=== PATIENT | male | born 1995 | race Asian ===

== ENCOUNTER 2016-07-22 22:18 | Inpatient (IN) | payer OTHER ==
[~2016-07-22] VITALS: Ht 170.2 cm; Wt 62.0 kg
[2016-07-22] MEDS ORDERED: ONDANSETRON 4 MG INJ IV STA (22:55)
[2016-07-22] MEDS ORDERED: morphine 4 MG/ML VIAL IV STA (22:55)
[2016-07-22] MEDS ORDERED: SOD CHLORIDE 0.9% 1,000 ML IV STA (22:55)
--- NOTE | 2016-07-22 23:23 | ERD ---
ER Documentation Chief Complaint Date/Time DATE: 07/22/16 TIME: 23:21 Chief Complaint RIGHT QUADRANT ABD PAIN STARTED AROUND 3 PM TODAY WITH N/V HPI 21-year-old male presents here in emergency department for complaints of right lower quadrant abdominal pain started at 3 PM today with nausea and vomiting, also started to have fever today. Patient describes the pain as sharp pain, 9/ 10 scale, accompanied with vomiting. Patient does not have any blood in the vomit. Patient does not live blurriness or black stool. Patient does not have any diarrhea or constipation. Patient does not have any flank pain. Patient does not have hematuria or dysuria. ROS All systems reviewed and are negative except as per history of present illness. Medications Home Meds Reported Medications [none] Unknown Strength No Conflict Check 07/22/16 Allergies Allergies: Coded Allergies: No Known Allergy (Unverified , 07/22/16) PMhx/Soc Medical and Surgical Hx: pt denies Medical Hx, pt denies Surgical Hx FmHx Family History: No coronary disease, No diabetes, No other Physical Exam Vitals Vital Signs Date Time Temp Pulse Resp B/P Pulse Ox O2 Delivery O2 Flow Rate FiO2 07/22/16 22:20 99.4 98 20 135/80 96 Physical Exam GENERAL: The patient is well developed and appropriate for usual state of health, in no apparent distress. CHEST: Clear to auscultation bilaterally. There are no rales, wheezes or rhonchi. HEART: Regular rate and rhythm. No murmurs, clicks, rubs or gallops. No S3 or S4. ABDOMEN: Soft, tenderness in the right lower quadrant noted.. Good bowel sounds. No rebound or guarding. No gross peritonitis. No gross organomegaly or masses. No Sy sign BACK: No midline or flank tenderness. EXTREMITIES: Equal pulses bilaterally. There is no peripheral clubbing, cyanosis or edema. No focal swelling or erythema. Full range of motion. Grossly neurovascularly intact. NEURO: Alert and oriented. Cranial nerves 2-12 intact. Motor strength in all 4 extremities with 5/5 strength. Sensation grossly intact. Normal speech and gait. SKIN: There is no apparent rash or petechia. The skin is warm and dry. HEMATOLOGIC AND LYMPHATIC: There is no evidence of excessive bruising or lymphedema. No gross cervical, axillary, or inguinal lymphadenopathy. Results 24 hrs Laboratory Tests Test 07/22/16 23:35 Urine Color LT. YELLOW Urine Clarity CLEAR Urine pH 6.0 Urine Specific [place] 1.025 Urine Ketones NEGATIVE Urine Nitrite NEGATIVE Urine Bilirubin NEGATIVE Urine Urobilinogen 0.2 E.U./dL Urine Leukocyte Esterase 1+ Urine Microscopic RBC 0-2/HPF Urine Microscopic WBC 10-25/HPF Urine Squamous Epithelial Cells RARE Urine Bacteria RARE Urine Hemoglobin TRACE Urine Glucose NEGATIVE% Urine Total Protein NEGATIVE Current Medications Medications (Trade) Dose Ordered Sig/Leonard Route PRN Reason Start Time Stop Time Status Last Admin Dose Admin Sodium Chloride (NS) 1,000 ml @ 1,000 mls/hr Q1H STAT IV 07/22/16 22:55 07/22/16 23:54 DC 07/23/16 00:18 Morphine Sulfate (morphine) 4 mg ONCE STAT IV 07/22/16 22:55 07/22/16 22:56 DC 07/23/16 00:18 Ondansetron HCl (Zofran Inj) 4 mg ONCE STAT IV 07/22/16 22:55 07/22/16 22:56 DC 07/23/16 00:18 Patient was given medication for pain here in emergency department, after treatment, patient verbalized feeling much better. Patient's pain is improved.Patient was given Zofran here in the emergency department. After treatment, patient was able to tolerate po fluids here in the emergency department without any vomiting. There is no signs and symptoms of dehydration. Normal saline IV bolus was given here in emergency department for rehydration, patient tolerated IV fluids. PROCEDURE: CT ABDOMEN/PELVIS WITHOUT CONTRAST CLINICAL INDICATION: 21-year-old male with right lower quadrant pain. TECHNIQUE: The study was performed utilizing a GE Zumobipegdgt VCT 64-slice CT scanner. Direct axial sections were obtained through the abdomen and pelvis without the use of intravenous contrast material. Sagittal and coronal reformations were obtained. One or more of the following dose reduction techniques were utilized: automated exposure control, adjustment of the mA and/ or kV according to patient's size or use of iterative reconstruction technique. The images were reviewed on a PACS workstation. CTD/vol = 6.9 mGy; Total Exam DLP = 361.0 mGy-cm. COMPARISON: None. FINDINGS: The lung bases are unremarkable. There is no evidence for significant pleural effusion. The liver has a normal size and contour without focal areas of abnormal density. No intrahepatic nor extrahepatic biliary ductal dilatation is seen. The gallbladder demonstrates no wall thickening nor pericholecystic fluid. No biliary stones are evident. The pancreas is without areas of abnormal attenuation. The spleen is identified and has a normal size without abnormal density. The adrenal glands are unremarkable. The kidneys are without abnormal density. No hydroureteronephrosis nor nephroureterolithiasis is evident. The urinary bladder contains urine. There is no evidence for bowel obstruction. The appendix is diffusely thickened measuring up to 12 mm with mild surrounding inflammatory changes consistent with acute appendicitis. Shotty mesenteric lymph nodes are present. There is no significant pelvic free fluid. The prostate is not enlarged. The aortoiliac vessels are without aneurysmal dilatation. The osseous structures are intact. IMPRESSION: 1. Diffusely thickened edematous appendix measuring up to 12 mm with mild surrounding inflammatory changes most consistent with acute appendicitis. 2. Shotty mesenteric lymph nodes. CRITICAL RESULTS: A call report was made to [facility] ER Letitia Haskins on July 22, 2016 11:59 p.m.. .Delmar Duran MD, MD Date Time Electronically viewed and signed by .Delmar Duran MD, MD on 07/23/2016 00:03 .M/ CC: LETITIA HASKINS NP Procedures/MDM Medical Decision Making: Patient is acute appendicitis, I discussed this case with Dr. Byers, will see patient in the morning, to start patient on Unasyn 3 gm IV [id number]. Patient will be admitted. Departure Diagnosis: Primary Impression: Appendicitis Appendicitis type: acute appendicitis Acute appendicitis type: unspecified acute appendicitis type Qualified Code: K35.80 - Acute appendicitis, unspecified acute appendicitis type Condition: Fair LETITIA HASKINS NP July 22, 2016 23:23
[2016-07-22 23:50] LABS: ADD UMIC YES; URINE BILIRUBIN (Dip) NEGATIVE (NEGATIVE); URINE BLOOD (Dip) TRACE (NEGATIVE); URINE COLOR LT. YELLOW (YELLOW); URINE GLUCOSE (Dip) NEGATIVE (NEGATIVE); URINE KETONES (Dip) NEGATIVE (NEGATIVE); URINE LEUKOCYTE ESTERASE (Dip) 1+ (NEGATIVE); URINE NITRITE (Dip) NEGATIVE (NEGATIVE); URINE TOTAL PROTEIN (Dip) NEGATIVE (NEGATIVE); URINE UROBILINOGEN (Dip) 0.2 E.U./dL (0.1-1.0)
[2016-07-23] VITALS (14 sets, daily range): BP systolic 96–122; BP diastolic 56–73; PULSE 60–84; RESP 14–23; Ht 170.2 cm; Wt 62.0 kg
--- NOTE | 2016-07-23 00:03 | RADRPT ---
PROCEDURE: CT ABDOMEN/PELVIS WITHOUT CONTRAST CLINICAL INDICATION: 21-year-old male with right lower quadrant pain. TECHNIQUE: The study was performed utilizing a GE Kwanj[employer] VCT 64-slice CT scanner. Direct axia l sections were obtained through the abdomen and pelvis without the use of intravenous contrast mate rial. Sagittal and coronal reformations were obtained. One or more of the following dose reduction t echniques were utilized: automated exposure control, adjustment of the mA and/or kV according to pat ient's size or use of iterative reconstruction technique. The images were reviewed on a PACS workst atRepunch. CTD/vol = 6.9 mGy; Total Exam DLP = 361.0 mGy-cm. COMPARISON: None. FINDINGS: The lung bases are unremarkable. There is no evidence for significant pleural effusion. The liver has a normal size and contour without focal areas of abnormal density. No intrahepatic nor extrahepa tic biliary ductal dilatation is seen. The gallbladder demonstrates no wall thickening nor perichole cystic fluid. No biliary stones are evident. The pancreas is without areas of abnormal attenuation. The spleen is identified and has a normal size without abnormal density. The adrenal glands are unr emarkable. The kidneys are without abnormal density. No hydroureteronephrosis nor nephroureterolithi asis is evident. The urinary bladder contains urine. There is no evidence for bowel obstruction. The appendix is diffusely thickened measuring up to 12 mm with mild surrounding inflammatory changes co nsistent with acute appendicitis. Shotty mesenteric lymph nodes are present. There is no significa nt pelvic free fluid. The prostate is not enlarged. The aortoiliac vessels are without aneurysmal dilatation. The osseous structures are intact. IMPRESSION: 1. Diffusely thickened edematous appendix measuring up to 12 mm with mild surrounding inflammatory changes most consistent with acute appendicitis. 2. Shotty mesenteric lymph nodes. CRITICAL RESULTS: A call report was made to [facility] ER Letitia Stevensonaaron on July 22, 2016 11:59 p.m.. .Delmar Duran MD, Date Time Electronically viewed and signed by .Delmar Duran MD, MD on 07/23/2016 00:03 .M/
[2016-07-23 00:14] LABS: URINE RBCS 0-2 /HPF (0)
[2016-07-23 00:16] LABS: BACTERIA,URINE RARE; SQUAMOUS EPITHELIAL CELL,UR RARE
[2016-07-23 00:18] LABS: ADD SCAN DIFF NO
[2016-07-23 00:21] LABS: BASOPHIL # 0.1 10^3/ul (0.0-0.1); BASOPHILS % 0.4 % (0.0-2.0); EOSINOPHILS % 0.2 % (0.0-7.0); HEMOGLOBIN 15.9 g/dl (14.0-18.0); LYMPHOCYTES # 1.3 10^3/ul (0.8-2.9); LYMPHOCYTES % 8.8 % (15.0-51.0); MEAN CORPUSCULAR HEMOGLOBIN 29.2 pg (29.0-33.0); MEAN CORPUSCULAR HGB CONC 33.8 g/dl (32.0-37.0); MEAN CORPUSCULAR VOLUME 86.2 fl (82.0-101.0); MONOCYTE # 0.5 10^3/ul (0.3-0.9); MONOCYTES % 3.6 % (0.0-11.0); NEUTROPHIL # 12.4 10^3/ul (1.6-7.5); NEUTROPHILS % 86.7 % (39.0-77.0); PLATELET COUNT 293 10^3/UL (140-415); RED BLOOD COUNT 5.45 10^6/ul (4.70-6.10); RED CELL DISTRIBUTION WIDTH 12.6 % (11.5-14.5); WHITE BLOOD COUNT 14.3 10^3/ul (4.8-10.8)
[2016-07-23] MEDS ORDERED: AMPICILLIN/SULB 3 GM/NS (PMX) 100 ML IVPB ONE (00:30)
[2016-07-23 00:41] LABS: ALBUMIN 4.9 g/dl (3.3-4.9); ALBUMIN/GLOBULIN RATIO 1.22; CALCIUM 9.7 mg/dl (8.4-10.2); CREATININE 0.91 mg/dl (0.61-1.24); POTASSIUM 3.9 mmol/L (3.5-5.1); TOTAL PROTEIN 8.9 g/dl (6.1-8.1)
[2016-07-23] MEDS ORDERED: morphine 4 MG/ML VIAL IV PRN (03:00)
[2016-07-23] MEDS ORDERED: ONDANSETRON 4 MG INJ IV PRN ×2 (04:30→17:30)
[2016-07-23 05:06] LABS: ADD SCAN DIFF NO
[2016-07-23 05:16] LABS: BASOPHILS % 0.3 % (0.0-2.0); EOSINOPHILS # 0.1 10^3/ul (0.0-0.5); EOSINOPHILS % 1.2 % (0.0-7.0); HEMATOCRIT 42.3 % (42.0-52.0); LYMPHOCYTES # 1.6 10^3/ul (0.8-2.9); LYMPHOCYTES % 14.8 % (15.0-51.0); MEAN CORPUSCULAR HEMOGLOBIN 28.9 pg (29.0-33.0); MEAN CORPUSCULAR HGB CONC 33.1 g/dl (32.0-37.0); MEAN CORPUSCULAR VOLUME 87.4 fl (82.0-101.0); MEAN PLATELET VOLUME 9.1 fl (7.4-10.4); MONOCYTE # 0.7 10^3/ul (0.3-0.9); MONOCYTES % 6.2 % (0.0-11.0); NEUTROPHIL # 8.3 10^3/ul (1.6-7.5); NEUTROPHILS % 77.1 % (39.0-77.0); PLATELET COUNT 274 10^3/UL (140-415); RED BLOOD COUNT 4.84 10^6/ul (4.70-6.10); RED CELL DISTRIBUTION WIDTH 12.6 % (11.5-14.5); WHITE BLOOD COUNT 10.7 10^3/ul (4.8-10.8)
[2016-07-23 05:46] LABS: CALCIUM 8.5 mg/dl (8.4-10.2); CREATININE 0.8 mg/dl (0.61-1.24); MAGNESIUM 1.8 mg/dl (1.7-2.5); PHOSPHORUS 3.7 mg/dl (2.5-4.9); POTASSIUM 3.7 mmol/L (3.5-5.1)
[2016-07-23] MEDS: AMPICILLIN/SULB 3 GM/NS (PMX) 100 ML IVPB SCH ×4 (05:57→23:22)
[2016-07-23] MEDS: DEXTROSE 5%-0.45% NACL 1,000 ML IV SCH ×3 (05:57→23:22)
--- NOTE | 2016-07-23 09:15 | CONS ---
Date/Time of Note Date/Time of Note DATE: 07/23/16 TIME: 09:12 Assessment/Plan Assessment/Plan Chief Complaint/Hosp Course 21-year-old male with acute appendicitis. This has been confirmed via CT scan. * Continue nothing by mouth * Broad-spectrum intravenous antibiotics * IV fluid hydration * Pain control Definitive treatment will consist of laparoscopic appendectomy; possible open. This has been explained to the patient along with all risks and benefits of the procedure. [She] fully understands and is agreeable to the treatment plan as outlined. Informed consent will be obtained and the patient will be scheduled for laparoscopic appendectomy; possible open Problems: Consultation Date/Type/Reason Admit Date/Time July 23, 2016 at 02:41 Date of Consultation: July 23, 2016 Type of Consultation: GENERAL SURGERY Reason for Consultation Acute appendicitis Hx of Present Illness Patient is an otherwise healthy 21-year-old male who presented to the emergency room complaining of abdominal pain. Pain began yesterday at approximately 3 PM. It is located in the right lower quadrant. It has been associated with multiple episodes of nausea/vomiting. He denies any diarrhea/constipation or fever/chills. He denies any similar episodes of pain in the past. On arrival to the emergency room the patient had a CT scan of the abdomen and pelvis which showed findings consistent with acute appendicitis. He is currently laying comfortably in bed, but does complain of right lower quadrant abdominal pain. A 14 point review of systems was conducted and was negative except for that which is mentioned in HPI Past Medical History Medical History: no pertinent history Past Surgical History Past Surgical Hx: no surgical history Family History Significant Family History: no pertinent family hx Social History Smoking Status: Never smoker Exam/Review of Systems Vital Signs Vitals Vital Signs Date Time Temp Pulse Resp B/P Pulse Ox O2 Delivery O2 Flow Rate FiO2 07/23/16 07:58 98.0 64 19 96/56 98 Intake and Output 07/22/16 07/22/16 07/23/16 15:00 23:00 07:00 Output Total 200 ml Balance -200 ml Exam GENERAL: Awake, alert, oriented x 3. No acute distress. SKIN: No jaundice. HEENT: PERRLA, EOMI, No Scleral Icterus NECK: Supple without JVD CARDIOVASCULAR: S1S2, regular rate and rhythm. No murmurs appreciated. RESPIRATORY: Clear to auscultation bilaterally. ABDOMEN: Soft, bowel sounds present, nondistended, there is right lower quadrant tenderness to palpation with localized rebound and guarding. There is a positive Rovsing sign. EXTREMITIES: Free range of motion x 4. No cyanosis, edema, or clubbing. NEUROLOGIC: Cranial nerves II-XII are intact. Sensation is intact grossly. Results Result Diagram: 07/23/16 0443 07/23/16 0443 Results 24 hrs Laboratory Tests Test 07/22/16 23:35 07/23/16 04:43 Urine Color LT. YELLOW Urine Clarity CLEAR Urine pH 6.0 Urine Specific [place] 1.025 Urine Ketones NEGATIVE Urine Nitrite NEGATIVE Urine Bilirubin NEGATIVE Urine Urobilinogen 0.2 E.U./dL Urine Leukocyte Esterase 1+ H Urine Microscopic RBC 0-2 Urine Microscopic WBC 10-25 Urine Squamous Epithelial Cells RARE Urine Bacteria RARE Urine Hemoglobin TRACE Urine Glucose NEGATIVE Urine Total Protein NEGATIVE White Blood Count 10.7 # Red Blood Count 4.84 Hemoglobin 14.0 Hematocrit 42.3 Mean Corpuscular Volume 87.4 Mean Corpuscular Hemoglobin 28.9 L Mean Corpuscular Hemoglobin Concent 33.1 Red Cell Distribution Width 12.6 Platelet Count 274 Mean Platelet Volume 9.1 Neutrophils % 77.1 H Lymphocytes % 14.8 L Monocytes % 6.2 Eosinophils % 1.2 Basophils % 0.3 Nucleated Red Blood Cells % 0.0 Neutrophils # 8.3 H Lymphocytes # 1.6 Monocytes # 0.7 Eosinophils # 0.1 Basophils # 0.0 Nucleated Red Blood Cells # 0.0 Sodium Level 139 Potassium Level 3.7 Chloride Level 105 Carbon Dioxide Level 29 Anion Gap 9 # Blood Urea Nitrogen 19 Creatinine 0.80 Glucose Level 100 Calcium Level 8.5 Phosphorus Level 3.7 Magnesium Level 1.8 Medications Medications Current Medications Ampicillin Sodium/ Sulbactam Sodium (Unasyn 3gm/NS (Pmx)) 100 ml @ 100 mls/hr Q6 IVPB Last administered on 07/23/16 05:57; Admin Dose 100 MLS/HR; Start 02/27 at 06:00 Morphine Sulfate 4 mg 4 mg Q4H PRN IV PAIN; Start 07/23/16 at 03:00 Dextrose/Sodium Chloride (D5-1/2ns) 1,000 ml @ 100 mls/hr Q10H IV Last administered on 5/12/17at 05:57; Admin Dose 100 MLS/HR; Start 07/23/16 at 04:30 Ondansetron HCl (Zofran Inj) 4 mg Q4H PRN IV NAUSEA; Start 07/23/16 at 04:30 Procedures Procedures PROCEDURE: CT ABDOMEN/PELVIS WITHOUT CONTRAST CLINICAL INDICATION: 21-year-old male with right lower quadrant pain. TECHNIQUE: The study was performed utilizing a GE App[employer] square nv VCT 64-slice CT scanner. Direct axial sections were obtained through the abdomen and pelvis without the use of intravenous contrast material. Sagittal and coronal reformations were obtained. One or more of the following dose reduction techniques were utilized: automated exposure control, adjustment of the mA and/ or kV according to patient's size or use of iterative reconstruction technique. The images were reviewed on a PACS workstation. CTD/vol = 6.9 mGy; Total Exam DLP = 361.0 mGy-cm. COMPARISON: None. FINDINGS: The lung bases are unremarkable. There is no evidence for significant pleural effusion. The liver has a normal size and contour without focal areas of abnormal density. No intrahepatic nor extrahepatic biliary ductal dilatation is seen. The gallbladder demonstrates no wall thickening nor pericholecystic fluid. No biliary stones are evident. The pancreas is without areas of abnormal attenuation. The spleen is identified and has a normal size without abnormal density. The adrenal glands are unremarkable. The kidneys are without abnormal density. No hydroureteronephrosis nor nephroureterolithiasis is evident. The urinary bladder contains urine. There is no evidence for bowel obstruction. The appendix is diffusely thickened measuring up to 12 mm with mild surrounding inflammatory changes consistent with acute appendicitis. Shotty mesenteric lymph nodes are present. There is no significant pelvic free fluid. The prostate is not enlarged. The aortoiliac vessels are without aneurysmal dilatation. The osseous structures are intact. IMPRESSION: 1. Diffusely thickened edematous appendix measuring up to 12 mm with mild surrounding inflammatory changes most consistent with acute appendicitis. 2. Shotty mesenteric lymph nodes. CRITICAL RESULTS: A call report was made to [facility] DONIS Langley on July 22, 2016 11:59 p.m.. .Delmar Duran MD, MD Date Time Electronically viewed and signed by .Delmar Duran MD, on 07/23/2016 00:03 .M/ CC: DAWIT LANGLEY NP, MICHAEL A. MD July 23, 2016 09:15
--- NOTE | 2016-07-23 12:04 | HP ---
Date/Time of Note Date/Time of Note DATE: 07/23/16 TIME: 12:01 Assessment/Plan Lines/Catheters IV Catheter Type (from Nrsg): Peripheral IV Assessment/Plan Assessment/Plan IMPRESSION 1. Acute Appendicitis 2. Abd pain 2/2 above PLAN NPO with IVF Pain mgmt Awaiting surgical eval HPI/ROS Admit Date/Time Admit Date/Time July 23, 2016 at 02:41 Hx of Present Illness patient is a 21 yo male who presented to ER with abd pain. CT showed Diffusely thickened edematous appendix measuring up to 12 mm with mild surrounding inflammatory changes most consistent with acute appendicitis and Shotty mesenteric lymph nodes. In ER, he was afebrile and WBC was 14,000. . . PMH/Family/Social Past Medical History Medical History: no pertinent history Past Surgical History Past Surgical Hx: no surgical history Social History Smoking Status: Never smoker Exam/Review of Systems Vital Signs Vitals Vital Signs Date Time Temp Pulse Resp B/P Pulse Ox O2 Delivery O2 Flow Rate FiO2 07/23/16 07:58 98.0 64 19 96/56 98 Intake and Output 07/22/16 07/22/16 07/23/16 15:00 23:00 07:00 Output Total 200 ml Balance -200 ml Labs Result Diagram: 07/23/16 0443 07/23/16 0443 Medications Medications Current Medications Ampicillin Sodium/ Sulbactam Sodium (Unasyn 3gm/NS (Pmx)) 100 ml @ 100 mls/hr Q6 IVPB Last administered on 07/23/16 05:57; Admin Dose 100 MLS/HR; Start 02/27 at 06:00 Morphine Sulfate 4 mg 4 mg Q4H PRN IV PAIN; Start 07/23/16 at 03:00 Dextrose/Sodium Chloride (D5-1/2ns) 1,000 ml @ 100 mls/hr Q10H IV Last administered on 07/23/16 05:57; Admin Dose 100 MLS/HR; Start 07/23/16 at 04:30 Ondansetron HCl (Zofran Inj) 4 mg Q4H PRN IV NAUSEA; Start 07/23/16 at 04:30 JAY DANIEL MD July 23, 2016 12:04
[2016-07-23] MEDS ORDERED: BUPIVACAINE 0.25%/EPI (SDV) 30 ML INJ ONE (15:32)
[2016-07-23] MEDS ORDERED: PROPOFOL 20 ML ONE (16:42)
[2016-07-23] MEDS ORDERED: ROCURONIUM 50 MG INJ ONE (16:42)
[2016-07-23] MEDS ORDERED: FENTAnyl 50 MCG/ML VIAL ONE (16:42)
[2016-07-23] MEDS ORDERED: MIDAZOLAM 1 MG/ML 2 ML INJ ONE (16:42)
[2016-07-23] MEDS ORDERED: SUCCINYLCHOLINE CHLORIDE 100 MG/5 ML SYG IV ONE (16:42)
[2016-07-23] MEDS ORDERED: LIDOCAINE 1% (MDV) 20 ML INJ ONE (16:44)
[2016-07-23] MEDS ORDERED: FAMOTIDINE 20 MG INJ ONE (16:51)
[2016-07-23] MEDS ORDERED: ONDANSETRON 4 MG INJ ONE (16:51)
[2016-07-23] MEDS ORDERED: DEXAMETHASONE 4 MG/ML 1 ML INJ ONE (16:51)
[2016-07-23] MEDS ORDERED: ROPIVACAINE 0.2% 20 ML VIAL ONE (17:12)
[2016-07-23] MEDS ORDERED: GLYCOPYRROLATE 0.4 MG INJ ONE (17:17)
[2016-07-23] MEDS ORDERED: NEOSTIGMINE 3 MG/3 ML SYRINGE ONE (17:17)
--- NOTE | 2016-07-23 17:28 | OPR ---
Date/Time of Note Date/Time of Note DATE: 07/23/16 TIME: 17:24 Operative Report Procedure Date: July 23, 2016 Preoperative Diagnosis Acute appendicitis with localized peritonitis Postoperative Diagnosis Acute appendicitis with localized peritonitis Operation Performed Laparoscopic appendectomy Surgeon: NAZ GARCÍA MD Anesthesia: general Anesthesiologist: RAUL CRUZ DO Estimated Blood Loss: minimal Specimens Appendix Complications: None Pt Condition Post Procedure: stable Disposition: PACU Indications Patient is a 21-year-old male who presented to the emergency room complaining of a 1 day history of right lower quadrant abdominal pain. The patient had clinical signs and symptoms of acute appendicitis which was confirmed via CT scan. He was therefore admitted, kept nothing by mouth, started on broad- spectrum intravenous antibiotics and scheduled for laparoscopic appendectomy; possible open as definitive treatment. All risks and benefits of the procedure including but not limited to: Wound infection, excessive bleeding, injury to intra-abdominal organs, conversion to open procedure etc. were explained to the patient in full detail. The patient fully understood and wished to proceed with the procedure. Informed consent was therefore obtained. Operative\Procedure Findings Nonperforated appendicitis Procedure Description The patient was brought to the operating room and placed supine on the operating table. Bilateral sequential compression devices were placed on both lower extremities. The patient had been maintained on broad-spectrum intravenous antibiotics while an inpatient on the floor. After the induction of smooth general endotracheal anesthesia the patient's abdomen was prepped and draped in the standard surgical fashion. A 5 mm incision was made in the superior umbilicus and a Veress needle was used to access the intra-abdominal cavity atraumatically. Pneumoperitoneum was then obtained and the Veress needle was exchanged for a 5 mm trocar through which a 5 mm laparoscope was placed. Two further working ports were then placed, a 12 mm port in the midline suprapubic area and another 5 mm port in the left lower quadrant. All port sites were anesthetized with 0.25% Marcaine with epinephrine prior to incision. Attention was then turned towards the right lower quadrant. Using atraumatic graspers, the appendix was grasped and retracted superiorly and medially exposing the mesoappendix. The appendix appeared erythematous and inflamed consistent with acute appendicitis, but not perforated. Using the harmonic scalpel the mesoappendix was taken down to the level of the appendiceal base. The appendix was then transected at its base using a firing of the laparoscopic JOAN stapler. Once completely free the appendix was placed in an Endo Catch bag and withdrawn through the suprapubic port site and passed off the field as specimen. Hemostasis was then inspected for and noted to be total. Pneumoperitoneum was then released and all trochars were withdrawn under direct vision. The fascia of the suprapubic port site was reapproximated using a 0 Vicryl suture in a [id number] fashion. The subcutaneous tissues were irrigated with more warm normal saline. The skin was then reapproximated using 4 -0 Monocryl sutures in subcuticular fashion. The incisions were cleaned and Dermabond was applied and the patient was awoken from anesthesia and transported to the recovery room in stable condition. All counts were correct at the end of the case x 2. NAZ GARCÍA MD July 23, 2016 17:28
[2016-07-23] MEDS ORDERED: HYDROCODONE/APAP (5/325) TAB PO PRN (17:30)
[2016-07-23] MEDS ORDERED: ACETAMINOPHEN 325 MG TAB PO PRN (17:30)
[2016-07-23] MEDS ORDERED: KETOROLAC 30 MG INJ IV PRN (17:30)
[2016-07-23] MEDS ORDERED: IBUPROFEN 600 MG TAB PO PRN (17:30)
[2016-07-23] MEDS ORDERED: DIPHENHYDRAMINE 50 MG INJ IV PRN (18:00)
[2016-07-23] MEDS ORDERED: HYDROmorphONE (0.2 MG/ML) 10ML SYG IV PRN ×2 (18:00)
[2016-07-23] MEDS ORDERED: MEPERIDINE 25 MG INJ IV PRN (18:00)
[2016-07-23] MEDS: DOCUSATE SODIUM 100 MG CAP PO SCH (20:12)
[2016-07-24] VITALS: BP 118/73; RESP 18
[2016-07-24 05:08] LABS: ADD SCAN DIFF NO
[2016-07-24 05:19] VITALS: BP 124/67; PULSE 72; RESP 18
[2016-07-24 05:22] LABS: BASOPHILS % 0.1 % (0.0-2.0); HEMATOCRIT 41.2 % (42.0-52.0); HEMOGLOBIN 13.5 g/dl (14.0-18.0); LYMPHOCYTES # 0.7 10^3/ul (0.8-2.9); LYMPHOCYTES % 8.6 % (15.0-51.0); MEAN CORPUSCULAR HEMOGLOBIN 28.4 pg (29.0-33.0); MEAN CORPUSCULAR HGB CONC 32.8 g/dl (32.0-37.0); MEAN CORPUSCULAR VOLUME 86.6 fl (82.0-101.0); MEAN PLATELET VOLUME 9.3 fl (7.4-10.4); MONOCYTE # 0.2 10^3/ul (0.3-0.9); MONOCYTES % 3.2 % (0.0-11.0); NEUTROPHIL # 6.7 10^3/ul (1.6-7.5); NEUTROPHILS % 87.8 % (39.0-77.0); PLATELET COUNT 290 10^3/UL (140-415); RED BLOOD COUNT 4.76 10^6/ul (4.70-6.10); RED CELL DISTRIBUTION WIDTH 12.6 % (11.5-14.5); WHITE BLOOD COUNT 7.6 10^3/ul (4.8-10.8)
[2016-07-24] MEDS: AMPICILLIN/SULB 3 GM/NS (PMX) 100 ML IVPB SCH (06:00)
[2016-07-24 06:14] LABS: CREATININE 0.79 mg/dl (0.61-1.24)
[2016-07-24 07:59] VITALS: BP 104/67; RESP 19
[2016-07-24] MEDS: DOCUSATE SODIUM 100 MG CAP PO SCH (09:58)
[2016-07-24] MEDS ORDERED: DOCU-216 PO (14:41)
--- NOTE | 2016-07-24 14:42 | PDOCDIS ---
Discharge Instructions DIAGNOSIS Discharge Diagnosis: acute appendicitis CONDITION Patient Condition: Stable HOME CARE INSTRUCTIONS: Diet Instructions: RegularSpecial Diet: NPO ACTIVITY: Activity Restrictions: Slowly Increase Activity Rest between Activity Avoid heavy lifting Do not operate Machinery Do not operate Power Tool Avoid Heavy Housework FOLLOW UP/APPOINTMENTS Appointments 1. Follow up with Dr. Basim Byers in one week LAKEISHA SCHREIBER July 24, 2016 14:42
[2016-07-24] MEDS ORDERED: HYDR-3498 PO (16:31)
== END 2016-07-24 17:20 | disposition home or self-care (01) | DRG 340 ==
LOC: FTE 22:18 → MS1 07-23 02:41
PROVIDERS: ADMIT Internal Medicine; ATTEND Internal Medicine
PROC: 0DTJ4ZZ Resection of Appendix, Percutaneous Endoscopic Approach (ICD-10-PCS; principal; 2016-07-23 16:00)
DX: K35.3 Acute appendicitis with localized peritonitis (principal)
CPT/HCPCS: 74176; 80048; 80053; 81001; 81003; 83690; 83735; 84100; 85025; 88304; J0295; J0330; J1100; J1885; J2250; J2270; J2405; J2710; J2795; J3010; J7030; J7042